=== PATIENT | male | born 1985 ===

== ENCOUNTER 2018-07-28 10:22 | Emergency (ER) | payer OTHER ==
[2018-07-28] MEDS ORDERED: CATAPRES PO ONE (10:53)
[2018-07-28] MEDS ORDERED: LASIX IV ONE (10:54)
[2018-07-28 11:18] LABS: Basophils # (Auto) 0.1 K/mm3 (0.0-0.1); Basophils % (Auto) 0.8 % (0.0-1.8); Eosinophils # (Auto) 0.3 K/mm3 (0.0-0.4); Eosinophils % (Auto) 2.7 % (0.0-4.3); Hematocrit 40.4 % (35.5-45.6); Hemoglobin 13.1 gm/dl (11.8-15.2); Lymphocytes # (Auto) 1.3 K/mm3 (1.2-5.4); Lymphocytes % (Auto) 12.1 % (13.4-35.0); Mean Corpuscular HGB Conc 33 % (32-34); Mean Corpuscular Volume 89 fl (84-94); Monocytes # (Auto) 1.1 K/mm3 (0.0-0.8); Monocytes % (Auto) 9.8 % (0.0-7.3); Platelet Count 290 K/mm3 (140-440); Red Blood Count 4.53 M/mm3 (3.65-5.03); Red Cell Distribution Width 13.8 % (13.2-15.2)
[2018-07-28 11:36] LABS: Albumin 3.8 g/dL (3.9-5); Calcium 9.2 mg/dL (8.4-10.2)
--- NOTE | 2018-07-28 11:56 | Emergency Department Report ---
ED General Adult HPI - General Chief complaint: Extremity Injury, Lower Stated complaint: SWOLLEN LEGS/KNEES/TESTICALS Time Seen by Provider: 07/28/18 10:37 Source: patient Mode of arrival: Ambulatory Limitations: No Limitations - History of Present Illness Initial comments: 33-year-old male with a past medical history of a recent diagnosis of hypertens ion and renal insufficiency presents to the hospital with complaints of continued lower extremity edema. Patient has had edema to his lower extremities and scrotum 1 month. He was admitted to [facility] for 5 days approximately 2 weeks ago for the same. Patient states that at that time swelling was worse and his creatinine was high at 7. It was some discussion about possible dialysis but his creatinine decreased to 5 prior to discharge. Patient claims that he was not provided any discharge paperwork, prescriptions, or follow-up as presents to the hospital here with continued edema. He denies shortness of breath or pain. Previous [facility] medical records were requested and reviewed at 12:20 PM. (records placed in chart) As per discharge summary patient was admitted for hypertensive emergency, renal failure, and cocaine abuse. Found to have stage V CK disease secondary to hypertension and hyperphosphatemia. Patient had a CT abdomen and pelvis without IV contrast 07/19/2018 that showed that patient has developmentally absent right kidney and had moderate bilateral pleural effusions. Patient also had a renal ultrasound 07/19/2018 shows an absent right kidney. Left kidney moderately prominent measuring 13.2 x 6.9 x 6.7 cm with cortical thickness of 1.5 cm. Bilateral pleural effusions right greater than the left Bilateral lower extremity Dopplers 07/21/2018: No evidence of DVT. Echocardiogram: LV severely dilated. Mild concentric LVH. EF 30-35%. Moderate global hypokinesis of left ventricle. Right ventricle cavity moderately dilated. RV systolic function moderately reduced. Left atrium mildly dilated. Right atrium is moderately dilated. Possible bicuspid aortic valve. IVC dilated Patient presented to [facility] with chest pain and elevated blood pressure was started on Cardene drip for hypertensive emergency. Patient refused dialysis and left AGAINST MEDICAL ADVICE with recommendation to follow with Dr Langford. It also noted patient admitted to state the cocaine and drinks alcohol mainly on weekends. Patient was discharged not discharged on any medications because he signed out AGAINST MEDICAL ADVICE. Severity scale (0 -10): 0 - Related Data Previous Rx's Medication Instructions Recorded Last Taken Type Furosemide [Lasix TAB] 40 mg PO BID #60 tablet 07/28/18 Unknown Rx Labetalol [Normodyne TAB] 200 mg PO BID #60 tablet 07/28/18 Unknown Rx amLODIPine [Norvasc] 10 mg PO DAILY #30 tablet 07/28/18 Unknown Rx Allergies Allergy/AdvReac Type Severity Reaction Status Date / Time No Known Allergies Allergy Unverified 07/28/18 10:24 ED Review of Systems ROS: Stated complaint: SWOLLEN LEGS/KNEES/TESTICALS Other details as noted in HPI Comment: All other systems reviewed and negative ED Past Medical Hx - Past Medical History Previous Medical History?: Yes Hx Hypertension: Yes Hx Renal Disease: Yes (stage 5 kidney disease) - Surgical History Past Surgical History?: No - Social History Smoking Status: Never Smoker Substance Use Type: Alcohol (alcohol on weekends), Cocaine - Medications Home Medications: Home Medications Medication Instructions Recorded Confirmed Last Taken Type Furosemide [Lasix TAB] 40 mg PO BID #60 tablet 07/28/18 Unknown Rx Labetalol [Normodyne TAB] 200 mg PO BID #60 tablet 07/28/18 Unknown Rx amLODIPine [Norvasc] 10 mg PO DAILY #30 tablet 07/28/18 Unknown Rx ED Physical Exam - General Limitations: No Limitations - Other Other exam information: General: No limitations, patient is alert in no acute distress Head exam: Atraumatic, normocephalic Eyes exam: Normal appearance, pupils equal reactive to light, extraocular movem ents intact ENT: Moist mucous membrane, normal oropharynx Neck exam: Normal inspection, full range of motion, no meningismus nontender Respiratory exam: Clear to auscultation bilateral, no wheezes, rales, crackles Cardiovascular: Normal rate and rhythm, normal heart sounds Abdomen: Soft, nondistended, and nontender, with normal bowel sounds, no rebound, or guarding Extremity: Full range of motion normal inspection no deformity, 2+ pitting lower extremity edema Back: Normal Inspection, full range of motion, no tenderness Neurologic: Alert, oriented x3, cranial nerves intact, no motor or sensory deficit Psychiatric: normal affect, normal mood Skin: Warm, dry, intact ED Course Vital Signs 07/28/18 07/28/18 07/28/18 10:29 10:45 11:00 Temperature 98.8 F Pulse Rate 104 H Respiratory 20 Rate Blood Pressure 216/144 219/149 219/149 Blood Pressure [Left] O2 Sat by Pulse 100 100 100 Oximetry 07/28/18 07/28/18 07/28/18 11:40 11:41 11:46 Temperature Pulse Rate 97 H Respiratory Rate Blood Pressure 206/135 206/135 206/135 Blood Pressure [Left] O2 Sat by Pulse 100 100 Oximetry 07/28/18 07/28/18 07/28/18 12:00 12:15 12:30 Temperature Pulse Rate Respiratory Rate Blood Pressure 191/132 181/130 181/130 Blood Pressure [Left] O2 Sat by Pulse 99 99 100 Oximetry 07/28/18 07/28/18 07/28/18 12:45 13:52 13:54 Temperature 97.8 F Pulse Rate 84 Respiratory 20 Rate Blood Pressure 157/115 157/115 Blood Pressure 170/121 [Left] O2 Sat by Pulse 99 100 99 Oximetry 07/28/18 14:37 Temperature Pulse Rate 92 H Respiratory Rate Blood Pressure 169/122 Blood Pressure [Left] O2 Sat by Pulse Oximetry - Consultations Consultation #1: 07/28/18 12:49 case d/w Dr Sparks nephrology, he will come to evaluate pt. 07/28/18 14:45 Dr Sparks was kind enough to come to see and evaluate patient. Recommended meds will be prescribed. Patient apparently told Dr Sparks that he plans to seek treatment in [place]. ED Medical Decision Making - Lab Data Result diagrams: 07/28/18 10:56 07/28/18 10:55 Lab Results 07/28/18 07/28/18 07/28/18 Range/Units 10:55 10:56 12:25 WBC 10.8 (4.5-11.0) K/mm3 RBC 4.53 (3.65-5.03) M/mm3 Hgb 13.1 (11.8-15.2) gm/dl Hct 40.4 (35.5-45.6) % MCV 89 (84-94) fl MCH 29 (28-32) pg MCHC 33 (32-34) % RDW 13.8 (13.2-15.2) % Plt Count 290 (140-440) K/mm3 Lymph % (Auto) 12.1 L (13.4-35.0) % [place] % (Auto) 9.8 H (0.0-7.3) % Eos % (Auto) 2.7 (0.0-4.3) % Baso % (Auto) 0.8 (0.0-1.8) % Lymph # 1.3 (1.2-5.4) K/mm3 [place] # 1.1 H (0.0-0.8) K/mm3 Eos # 0.3 (0.0-0.4) K/mm3 Baso # 0.1 (0.0-0.1) K/mm3 Seg Neutrophils % 74.6 H (40.0-70.0) % Seg Neutrophils # 8.1 H (1.8-7.7) K/mm3 Sodium 141 (137-145) mmol/L Potassium 4.6 (3.6-5.0) mmol/L Chloride 104.7 (98-107) mmol/L Carbon Dioxide 21 L (22-30) mmol/L Anion Gap 20 mmol/L BUN 49 H (9-20) mg/dL Creatinine 5.5 H (0.8-1.5) mg/dL Estimated GFR 12 ml/min BUN/Creatinine Ratio 9 % Glucose 95 (75-100) mg/dL Calcium 9.2 (8.4-10.2) mg/dL Total Bilirubin 0.50 (0.1-1.2) mg/dL AST 14 (5-40) units/L ALT 29 (7-56) units/L Alkaline Phosphatase 110 (35-129) units/L NT-Pro-B Natriuret Pep 14445 H (0-450) pg/mL Total Protein 7.0 (6.3-8.2) g/dL Albumin 3.8 L (3.9-5) g/dL Albumin/Globulin Ratio 1.2 % Urine Color (Yellow) Urine Turbidity (Clear) Urine pH (5.0-7.0) Ur Specific [place] (1.003-1.030) Urine Protein (Negative) mg/dL Urine Glucose (UA) (Negative) mg/dL Urine Ketones (Negative) mg/dL Urine Blood (Negative) Urine Nitrite (Negative) Urine Bilirubin (Negative) Urine Urobilinogen (<2.0) mg/dL Ur Leukocyte Esterase (Negative) Urine WBC (Auto) (0.0-6.0) /HPF Urine RBC (Auto) (0.0-6.0) /HPF Urine Opiates Screen Presumptive negative Urine Methadone Screen Presumptive negative Ur Barbiturates Screen Presumptive negative Ur Phencyclidine Scrn Presumptive negative Ur Amphetamines Screen Presumptive negative U Benzodiazepines Scrn Presumptive negative Urine Cocaine Screen Presumptive negative U Marijuana (THC) Screen Presumptive negative Drugs of Abuse Note Disclamer 07/28/18 Range/Units 13:08 WBC (4.5-11.0) K/mm3 RBC (3.65-5.03) M/mm3 Hgb (11.8-15.2) gm/dl Hct (35.5-45.6) % MCV (84-94) fl MCH (28-32) pg MCHC (32-34) % RDW (13.2-15.2) % Plt Count (140-440) K/mm3 Lymph % (Auto) (13.4-35.0) % [place] % (Auto) (0.0-7.3) % Eos % (Auto) (0.0-4.3) % Baso % (Auto) (0.0-1.8) % Lymph # (1.2-5.4) K/mm3 [place] # (0.0-0.8) K/mm3 Eos # (0.0-0.4) K/mm3 Baso # (0.0-0.1) K/mm3 Seg Neutrophils % (40.0-70.0) % Seg Neutrophils # (1.8-7.7) K/mm3 Sodium (137-145) mmol/L Potassium (3.6-5.0) mmol/L Chloride (98-107) mmol/L Carbon Dioxide (22-30) mmol/L Anion Gap mmol/L BUN (9-20) mg/dL Creatinine (0.8-1.5) mg/dL Estimated GFR ml/min BUN/Creatinine Ratio % Glucose (75-100) mg/dL Calcium (8.4-10.2) mg/dL Total Bilirubin (0.1-1.2) mg/dL AST (5-40) units/L ALT (7-56) units/L Alkaline Phosphatase (35-129) units/L NT-Pro-B Natriuret Pep (0-450) pg/mL Total Protein (6.3-8.2) g/dL Albumin (3.9-5) g/dL Albumin/Globulin Ratio % Urine Color Colorless (Yellow) Urine Turbidity Clear (Clear) Urine pH 7.0 (5.0-7.0) Ur Specific [place] 1.004 (1.003-1.030) Urine Protein 100 mg/dl (Negative) mg/dL Urine Glucose (UA) Neg (Negative) mg/dL Urine Ketones Neg (Negative) mg/dL Urine Blood Neg (Negative) Urine Nitrite Neg (Negative) Urine Bilirubin Neg (Negative) Urine Urobilinogen < 2.0 (<2.0) mg/dL Ur Leukocyte Esterase Neg (Negative) Urine WBC (Auto) < 1.0 (0.0-6.0) /HPF Urine RBC (Auto) 2.0 (0.0-6.0) /HPF Urine Opiates Screen Urine Methadone Screen Ur Barbiturates Screen Ur Phencyclidine Scrn Ur Amphetamines Screen U Benzodiazepines Scrn Urine Cocaine Screen U Marijuana (THC) Screen Drugs of Abuse Note - EKG Data -: EKG Interpreted by Id EKG shows normal: sinus rhythm (qrsd 95), axis (qrs 2) Rate: tachycardia (104) - Radiology Data Radiology results: report reviewed PROCEDURE: XR CHEST ROUTINE 2V TECHNIQUE: Frontal and lateral views of the chest HISTORY: leg edema COMPARISONS: None. FINDINGS: The cardiomediastinal silhouette is normal. The lungs are clear. No focal consolidation. No pleural effusion or pneumothorax. No acute bony or soft tissue abnormality. IMPRESSION: No acute cardiopulmonary disease. - Medical Decision Making pt had htn and chronic renal failure who has declined offer for dialysis Patient treated with clonidine and IV Lasix in the ED with improvement in blood pressure and significant urine output Pt seen by Dr Sparks (who also covers for Dr Justice) rec meds and f/u but states pt plans to go to [place] for further tx pt sx are chronic and progressive. Meds and f/u advised - Differential Diagnosis liver failure, kidney failure, hypertensive emergency, CHF Critical Care Time: No Critical care attestation.: If time is entered above; I have spent that time in minutes in the direct care of this critically ill patient, excluding procedure time. ED Disposition Clinical Impression: Hypertension, Chronic renal failure, Non-compliant patient, Hx of cocaine abuse, Edema Disposition: - TO HOME OR SELFCARE Is pt being admited?: No Does the pt Need Aspirin: No Condition: Stable Instructions: Hypertension (ED), Chronic Kidney Disease (ED), Leg Edema (ED) Additional Instructions: Take the medication as prescribed. Follow up with your doctor or the clinic/doctor provided. Return if symptoms worsen as indicated by your dis charge instructions [employer] la medicacin segn lo prescrito. Antonio un seguimiento con souza mdico o la c lnica / mdico proporcionado. Regrese si los sntomas empeoran go lo indican eugenio instrucciones de gene. Prescriptions: Furosemide [Lasix TAB] 40 mg PO BID #60 tablet Labetalol [Normodyne TAB] 200 mg PO BID #60 tablet amLODIPine [Norvasc] 10 mg PO DAILY #30 tablet Referrals: [facility] [Other] - 3-5 Days REGINE LANGFORD MD [Staff Physician] - 3-5 Days (nefrlogo) Time of Disposition: 14:52 Print Language: DANISH
--- NOTE | 2018-07-28 13:23 | XRay Report ---
PROCEDURE: XR CHEST ROUTINE 2V TECHNIQUE: Frontal and lateral views of the chest HISTORY: leg edema COMPARISONS: None. FINDINGS: The cardiomediastinal silhouette is normal. The lungs are clear. No focal consolidation. No pleural effusion or pneumothorax. No acute bony or soft tissue abnormality. IMPRESSION: No acute cardiopulmonary disease. This document is electronically signed by Faby Pritchard MD., July 28 2018 01:21:37 PM ET
[2018-07-28 13:27] LABS: Bilirubin,Urine NEG (Negative); Blood,Urine NEG (Negative); Color,Urine Colorless (Yellow); Urobilinogen,Urine < 2.0 mg/dL (<2.0); WBC,Urine < 1.0 /HPF (0.0-6.0)
[2018-07-28 13:28] LABS: Amphetamine Screen,Urine PRESUMPTIVE NEGATIVE; Benzodiazepines Screen,Urine PRESUMPTIVE NEGATIVE; Cannabinoid Screen,Urine PRESUMPTIVE NEGATIVE; Cocaine Screen,Urine PRESUMPTIVE NEGATIVE; Methadone Screen,Urine PRESUMPTIVE NEGATIVE; Opiate Screen,Urine PRESUMPTIVE NEGATIVE
[2018-07-28] MEDS ORDERED: NORMODYNE PO SCH (14:00)
[2018-07-28] MEDS ORDERED: NORVASC PO SCH (14:00)
--- NOTE | 2018-07-28 14:00 | Consultation ---
History of Present Illness - Reason for Consult Consult date: 07/28/18 chronic renal failure, accelerated hypertension - History of Present Illness The patient is a 33 YO male with history significant for Hypertension, CKD stage 5, Absent right kidney, Dilated CM with EF 30-35% and Cocaine use who presented to [facility] ER with complaints of continued lower extremity edema for about a month. Patient speaks only [place] and history was obtained through the supervisor [employer]. He was admitted to [facility] for 5 days for similar presentation and was discharged recently. He was recommended dialysis but he refused and signed out AMA. Patient denies any N, V, D, abd pain, sob, cp, cough, dizziness or syncope. Nephrology was consulted for further evaluation. Past History Past Medical History: hypertension, renal failure, other (cocaine use) Medications and Allergies Allergies Allergy/AdvReac Type Severity Reaction Status Date / Time No Known Allergies Allergy Unverified 07/28/18 10:24 Home Medications Medication Instructions Recorded Confirmed Last Taken Type Furosemide [Lasix TAB] 40 mg PO BID #60 tablet 07/28/18 Unknown Rx Labetalol [Normodyne TAB] 200 mg PO BID #60 tablet 07/28/18 Unknown Rx amLODIPine [Norvasc] 10 mg PO DAILY #30 tablet 07/28/18 Unknown Rx Active Meds: Active Medications Amlodipine Besylate (Norvasc) 10 mg PO DAILY VERONICA Labetalol HCl (Normodyne) 200 mg PO BID VERONICA Review of Systems Constitutional: no weight loss, no weight gain, no fever, no chills Cardiovascular: edema, high blood pressure, leg edema, no chest pain, no orthopnea, no syncope, no lightheadedness, no shortness of breath Respiratory: no cough, no hemoptysis, no shortness of breath Gastrointestinal: no abdominal pain, no nausea, no vomiting, no diarrhea Genitourinary Male: no dysuria, no hematuria Integumentary: no rash Neurological: no seizures, no syncope Exam - Vital Signs Vital signs: Vital Signs Temp Pulse Resp BP Pulse Ox 98.8 F 104 H 20 216/144 100 07/28/18 10:29 07/28/18 10:29 07/28/18 10:29 07/28/18 10:29 07/28/18 10:29 - General Appearance General appearance: well-developed, well-nourished, appears stated age, other (not in distress) EENT: ATNC, PERRL, mucous membranes moist, hearing intact, vision intact Neck: Present: neck supple, trachea midline Respiratory: Clear to Ascultation Heart: regular, S1S2, no murmurs Gastrointestinal: Present: normoactive bowel sounds. Absent: tenderness, distended Integumentary: no rash, warm and dry Neurologic: no focal deficit Musculoskeletal: Present: other (2+ edema of both LEs noted) Results - Lab Results 07/28/18 10:56 07/28/18 10:55 Most recent lab results Calcium 9.2 mg/dL (8.4-10.2) 07/28/18 10:55 Assessment and Plan 1. CKD stage 5: Likely ESRD. Presented with volume overload. Recommended dialysis, he refused. Explained the risks involved in not doing dialysis. Patient understood the risks. He wants to go back to [place] for treatment. 2. FEN: Volume overload, diuretics. 3. Hypertension. Patient signed out AMA.
[2018-07-28 15:19] VITALS: BP 175/121
== END 2018-07-28 15:18 | disposition home or self-care (01) ==
LOC: ED 10:22
DX: R60.0 Localized edema (principal); I12.0 Hypertensive chronic kidney disease with stage 5 chronic kidney disease or end stage renal disease; N18.5 Chronic kidney disease, stage 5; F14.10 Cocaine abuse, uncomplicated; Z91.19 Patient's noncompliance with other medical treatment and regimen
CPT/HCPCS: 36415; 71046; 80053; 80307; 81001; 83880; 85025; 93005; 93010; 96374; 99284; J1940